=== PATIENT | female | born 1990 | race Caucasian/White ===

== ENCOUNTER 2025-04-19 09:35 | Outpatient (CLI) | payer OTHER, SELFPAY ==
--- NOTE | 2025-04-19 10:00 | CRLHL7_ITS ---
For Patients: As a result of the Century Cures Act, medical imaging exams and procedure reports are released immediately into your electronic medical record. You may view this report before your referring provider. If you have questions, please contact your health care provider. OBSTETRICAL ULTRASOUND TRANSABDOMINAL INDICATION: Dating and viability. CLINICAL HISTORY: JACQUES by Ultrasound: 10/02/2025 Gestational Age: 16 weeks 2 days COMPARISON: No TECHNIQUE: Real-time pretty-scale transabdominal imaging of the fetus was performed. FINDINGS: Fetus: Single Cervix: Not visualized positioning: Breech Placenta technique: Transabdominal Placenta position: Posterior heart rate: 165 bpm BIOMETRY: BPD: 3.3 cm, 16 weeks 2 days, 46% HC: 12.2 cm, 16 weeks 1 day, 27% AC: 10.8 cm, 16 weeks 5 days, 66% FL: 1.9 cm, 15 weeks 4 days, 20% FL/AC Ratio: 17.5% HC/AC ratio: 1.13 EFW: 147.20 grams; 0 lbs. 5 oz. age by this ultrasound: 16 weeks 1 day JACQUES by this ultrasound: 10/03/2025 Percentile by JACQUES: 34% IMPRESSION: 1. Single live intrauterine measures 16 weeks 1 day and sonographic due date is 10/03/2025. 2. Estimated weight is 34th percentile. Abdominal circumference is 66th percentile. CONNOR BERUMEN M.D. Diagnostic Radiologist [email or web address] Transcribed: 11:[address]/Dictated by: Connor Berumen MD @ 04/19/2025 10:33:00 AM (Electronically Signed)
== END 2025-04-19 09:36 | disposition home or self-care (01) ==
LOC: US 09:38
PROVIDERS: Visit Provider Physician Assistant
DX: C50.912 Malignant neoplasm of unspecified site of left female breast (principal); Z90.13 Acquired absence of bilateral breasts and nipples; Z98.890 Other specified postprocedural states; J98.4 Other disorders of lung; K76.0 Fatty (change of) liver, not elsewhere classified; Z34.91 Encounter for supervision of normal pregnancy, unspecified, first trimester
CPT/HCPCS: 76801; 76815

== ENCOUNTER 2025-04-19 11:06 | Outpatient (CLI) | payer OTHER, SELFPAY ==
[2025-04-19 15:59] LABS: Chlamydia DNA Amplified* NOT DETECTED (No Detected); GC DNA Amplified* NOT DETECTED (No Detected)
== END 2025-04-19 11:07 | disposition home or self-care (01) ==
PROVIDERS: Visit Provider Physician Assistant
DX: Z34.91 Encounter for supervision of normal pregnancy, unspecified, first trimester (principal)
CPT/HCPCS: 83020; 83021; 85660; 86703; 86704; 86706; 86762; 86780; 86787; 86803; 86850; 86900; 86901; 87086; 87340; 87491; 87591